=== PATIENT | female | born 1980 | race Two or more races ===

== ENCOUNTER 2019-06-01 11:51 | Day surgery (SDC) | payer OTHER ==
[2019-05-29 13:52] LABS: BASOPHILS # (AUTO) 0.03 x10^3/uL (0-0.1); BASOPHILS % (AUTO) 0 % (0-1); EOSINOPHILS # (AUTO) 0.09 x10^3/uL (0-0.4); EOSINOPHILS % (AUTO) 1 % (1-7); LYMPHOCYTES # (AUTO) 2.45 x10^3/uL (1-3.4); LYMPHOCYTES % (AUTO) 32 % (22-44); MD NO; MEAN CORPUSCULAR HEMOGLOBIN 28.7 pg (27.0-34.8); MEAN CORPUSCULAR HGB CONC 32.9 g/dL (32.4-35.8); MEAN CORPUSCULAR VOLUME 87.4 fL (80-100); MONOCYTES % (AUTO) 6 % (2-9); NEUTROPHILS # (AUTO) 4.66 x10^3/uL (1.8-6.8); NEUTROPHILS % (AUTO) 60 % (42-75); PLATELET COUNT 226 x10^3/uL (130-400); RED BLOOD COUNT 4.41 x10^6/uL (3.82-5.3); RED CELL DISTRIBUTION WIDTH 15.4 % (9.6-15.2)
[2019-05-29 14:00] LABS: INTERNATIONAL NORMALIZED RATIO 0.94 (0.93-1.1)
[2019-05-29 14:02] LABS: ALANINE AMINOTRANSFERASE 18 U/L (12-78); ALBUMIN 3.5 g/dL (3.4-5.0); ANION GAP 5 mmol/L (5-15); CALCIUM 8.4 mg/dL (8.5-10.1); CHLORIDE 109 mmol/L (98-107); CREATININE 0.77 mg/dL (0.55-1.02)
[2019-05-29 14:06] LABS: ALKALINE PHOSPHATASE 69 U/L (45-117); BILIRUBIN,TOTAL 0.4 mg/dL (0.2-1.0); TOTAL PROTEIN 7.5 g/dL (6.4-8.2)
[~2019-06-01] VITALS: Ht 162.6 cm; Wt 84.6 kg
[2019-06-01] MEDS ORDERED: CEFOTETAN PMX 2GM/50ML 50 ML IV STA (12:45)
[2019-06-01] MEDS ORDERED: LACTATED RINGERS 1,000 ML IV SCH (12:45)
[2019-06-01] MEDS ORDERED: CHLORHEXIDINE 15 ML UDC MM STA (12:46)
[2019-06-01 12:53] VITALS: BP 123/89
[2019-06-01] MEDS ORDERED: BUPIVACAINE/PF-EPI 0.25% 1:200K ONE (14:42)
[2019-06-01] MEDS ORDERED: BUPIVACAINE/PF-EPI 0.5% 1:200K ONE (14:42)
[2019-06-01] MEDS ORDERED: CEFOTETAN 2 GM ONE (15:10)
[2019-06-01] MEDS ORDERED: MIDAZOLAM 1 MG/ML, 2ML ONE (15:12)
[2019-06-01] MEDS ORDERED: FENTANYL PF 250 MCG/5ML ONE (15:13)
[2019-06-01] MEDS ORDERED: INDOCYANINE GREEN 25 MG VIAL ONE (15:36)
[2019-06-01] MEDS ORDERED: SUCCINYLCHOLINE 20 MG/ML, 10ML ONE (17:20)
[2019-06-01] MEDS ORDERED: PROPOFOL 10 MG/ML, 20ML ONE (17:20)
[2019-06-01] MEDS ORDERED: ONDANSETRON 2MG/ML, 2ML ONE (17:20)
[2019-06-01] MEDS ORDERED: CEFAZOLIN 1,000 MG ONE (17:20)
[2019-06-01] MEDS ORDERED: DEXAMETHASONE 4 MG/ML, 1ML ONE (17:20)
[2019-06-01] MEDS ORDERED: ROCURONIUM 10MG/ML,5ML ONE (17:20)
[2019-06-01] MEDS ORDERED: NEOSTIGMINE 1 MG/ML, 10ML ONE (17:20)
[2019-06-01] MEDS ORDERED: GLYCOPYRROLATE 0.2MG/1ML, 5ML ONE (17:20)
[2019-06-01] MEDS ORDERED: SUGAMMADEX 200 MG/2 ML IVPush ONE ×2 (17:21→17:30)
[2019-06-01] MEDS ORDERED: FENTANYL PF 100 MCG/2ML ONE (17:58)
[2019-06-01] MEDS ORDERED: MEPERIDINE/PF 25MG/0.5ML IVPush PRN (18:00)
[2019-06-01] MEDS ORDERED: LABETALOL 5MG/ML, 20ML IV PRN ×2 (18:00→20:00)
[2019-06-01] MEDS ORDERED: OXYcodone 5 MG/5 ML ORAL.SOL UDC PO PRN ×2 (18:00→20:00)
[2019-06-01] MEDS ORDERED: hydrALAzine 20 MG/ML, 1ML IV PRN ×2 (18:00→20:00)
[2019-06-01] MEDS ORDERED: HYDROmorphone 2 MG/ML, 1ML IVPush PRN ×2 (18:00→20:00)
[2019-06-01] MEDS ORDERED: KETOROLAC 30 MG/1 ML IV PRN ×2 (18:00→20:00)
[2019-06-01] MEDS ORDERED: ALBUTEROL SULFATE 2.5 MG/3 ML NPPB PRN ×2 (18:00→20:00)
[2019-06-01] MEDS ORDERED: PROMETHAZINE 25 MG/ML, 1ML IV PRN ×2 (18:00→20:00)
[2019-06-01] MEDS ORDERED: ACETAMINOPHEN 325 MG TABLET PO PRN ×2 (18:00→20:00)
[2019-06-01] MEDS ORDERED: OXYcodone 5 MG/5 ML ORAL.SOL UDC ONE (18:00)
[2019-06-01] MEDS ORDERED: DIAZEPAM 5 MG/ML, 2ML IVPush PRN (18:00)
[2019-06-01] MEDS ORDERED: FENTANYL PF 100 MCG/2ML IV PRN ×2 (18:00→20:00)
[2019-06-01] MEDS ORDERED: MEPERIDINE/PF 25MG/ML,1ML ONE (18:01)
[2019-06-01] MEDS ORDERED: ONDANSETRON ODT 8 MG PO PRN (20:00)
[2019-06-01] MEDS ORDERED: MEPERIDINE/PF 25MG/ML,1ML IVPush PRN (20:00)
[2019-06-01] MEDS ORDERED: ONDANSETRON 2MG/ML, 2ML IV PRN (20:00)
== END 2019-06-01 23:46 | disposition home or self-care (01) ==
LOC: OUT 11:51 → 4NE 19:00 → OUT 23:46
PROVIDERS: ATTEND Obstetrics & Gynecology
DX: C54.1 Malignant neoplasm of endometrium (principal); N80.0 Endometriosis of uterus; D25.1 Intramural leiomyoma of uterus; N88.8 Other specified noninflammatory disorders of cervix uteri; N83.8 Other noninflammatory disorders of ovary, fallopian tube and broad ligament; N73.6 Female pelvic peritoneal adhesions (postinfective); Z79.01 Long term (current) use of anticoagulants; Z79.899 Other long term (current) drug therapy; Z90.49 Acquired absence of other specified parts of digestive tract; Z82.49 Family history of ischemic heart disease and other diseases of the circulatory system
CPT/HCPCS: 36415; 38570; 58552; 71046; 80053; 84703; 85025; 85610; 85730; 86304; 86850; 86900; 86923; 88112; 88305; 88307; 88329; 88333; 93005; J0690; J1100; J1885; J2175; J2250; J2405; J2704; J3010; J3490; J7120; S2900; G0378; J2710; J0330